=== PATIENT | female | born 1975 | race Caucasian/White ===

== ENCOUNTER → 2016-08-22 | Outpatient (CLI) | payer MEDICAID | LOC: CIMAGING 11:27 | PROVIDERS: ATTEND Family Medicine | DX: M79.671 Pain in right foot (principal) | CPT/HCPCS: 73620-PO ==

== ENCOUNTER → 2016-12-06 | Outpatient (CLI) | payer MEDICAID | LOC: CIMAGING 09:41 | PROVIDERS: ATTEND Family Medicine | DX: S22.20XA Unspecified fracture of sternum, initial encounter for closed fracture (principal); Y93.9 Activity, unspecified | CPT/HCPCS: 71120-PO ==

== ENCOUNTER 2017-10-15 00:55 | Emergency (ER) | payer MEDICAID ==
--- NOTE | 2017-10-15 01:40 | EDPHY ---
H & P Time Seen by Provider: 10/15/17 01:09 HPI/ROS: CC: red, painful, lump on back HPI: This 42-year-old female presents to the emergency department with her for a red and painful lump on her back. They are homeless and sleeping in a tent. She has had a fever for the last couple of days but they did not know how high or why. They only noticed the lump on her back this evening and came straight to the emergency room. They think she might have been bitten by a spider. No other known trauma. They have not noticed any drainage from the wound. REVIEW OF SYSTEMS: Constitutional: No chills. Eyes: No discharge. ENT: No sore throat. Respiratory: No cough, no shortness of breath. Cardiac: No chest pain, no palpitations. Gastrointestinal: No abdominal pain, no vomiting. Genitourinary: No dysuria Musculoskeletal: No extremity pain. Skin: See HPI Neurological: No headache. Source: Patient, Family () Exam Limitations: No limitations - Medical/Surgical History PMH: Past medical history includes degenerative joint disease, scoliosis, asthma, arthritis Past surgical history includes cholecystectomy, appendectomy, ORIF right foot, bilateral knee surgeries, x2 Allergies to sumatriptan Medications include oxycodone, Soma, gabapentin, Seroquel, duloxetine, ProAir Social history significant for being homeless, , two teenage children. 1.5 pack per day of cigarettes, no ETOH. +meth use. Last menstrual period 1.5 weeks ago Primary care provider is Dr. Coretta Cohen Asthma: No Hx Chronic Respiratory Disease: No Hx Diabetes: No Hx Cardiac Disease: No Hx Renal Disease: No Hx Cirrhosis: No Hx Alcoholism: No Hx HIV/AIDS: No Hx Splenectomy or Spleen Trauma: No Other PMH: chronic low back pain, right ankle surgery, knee surg, csectionx2, appendectomy, gall bladder removal, finger surgery, foot surgery. osteoporosis - Social History Smoking Status: Current every day smoker - Physical Exam Exam: General Appearance: Alert, moderate distress. Very anxious. Admits to using meth this evening. Appears older than stated age. Eyes: Pupils equal and round no pallor or injection. ENT, Mouth: Mucous membranes are moist. Respiratory: There are no retractions, lungs are clear to auscultation. Cardiovascular: Tachycardia, no murmurs, gallops or rubs. Gastrointestinal: Abdomen is soft and nontender, no masses, bowel sounds normal. Neurological: Awake and alert, sensory and motor exams grossly normal. Skin: Warm and dry. 5 cm x 4 cm area of erythema and induration upper back between scapulas. +fluctuance. No drainage. Musculoskeletal: Neck is supple nontender. Extremities are symmetrical, full range of motion. Psychiatric: Patient is oriented X 3. DIFFERENTIAL DIAGNOSIS: After history and physical exam differential diagnosis was considered for but not limited to: cellulitis, insect bite or sting, Constitutional: Initial Vital Signs Heart Rate 120 H 10/15/17 01:05 Respiratory Rate 18 10/15/17 01:05 Blood Pressure 136/98 H 10/15/17 01:05 O2 Sat (%) 96 10/15/17 01:05 O2 Delivery Mode Room Air O2 (L/minute) 36.8 Allergies/Adverse Reactions: sumatriptan Allergy (Mild, Verified 10/15/17 01:09) Other-Enter Comments Home Medications: Medication Instructions Recorded Oxycodon-Acetaminophen 7.5-500 01/26/14 Proair Hfa Icu (RX) 01/26/14 Clindamycin HCl [Cleocin HCl] 300 mg PO QID 10 Days #40 capsule 10/15/17 DULoxetine 10/15/17 Fioricet (*) 10/15/17 Gabapentin 10/15/17 Seroquel 10/15/17 Soma 10/15/17 Medical Decision Making Procedures: Procedure: Incision and drainage of abscess upper back The area was prepped and draped in the usual sterile fashion. The skin was cleansed with ChloraPrep. Local anesthesia was obtained with 6 cc of 0.5% bupivacaine with epinephrine. A 5 mm incision was made with a 11. Blade. Copious amounts of purulent fluid was expressed. A culture was taken. The wound was probed for loculations and irrigated with copious amounts of saline. Quarter-inch iodoform packing was placed into the wound. The area of erythema was outlined with a skin marker and a sterile dressing applied. The patient tolerated the procedure well. ED Course/Re-evaluation: The patient was seen and examined. Vital signs reviewed. She was afebrile but she was tachycardic. She admits to doing meth this evening. On exam she had a 5 x 4 cm area of erythema and induration on her upper, mid back. There was also fluctuance. Therefore an I&D was performed (see procedure note). Wound cultures were sent. She was given 900 mg of clindamycin IV piggyback. She will be sent home on clindamycin 300 mg 4 times a day. She should return in 2 days to have the packing either replaced were removed. She should recheck sooner if any worsening of symptoms as discussed. She should also follow up with her primary care provider early next week. - Data Points Medications Given: Discontinued Medications Clindamycin Phosphate/Dextrose (Cleocin 900 Mg (Premix)) 50 mls @ 100 mls/hr IV EDNOW ONE PRN Reason: Protocol Stop: 10/15/17 02:47 Last Admin: 10/15/17 02:22 Dose: 50 mls Departure - Departure Disposition: Home, Routine, Self-Care Clinical Impression: Cellulitis Qualifiers: Site of cellulitis: trunk Site of cellulitis of trunk: back Qualified Code(s): L03.312 - Cellulitis of back [any part except buttock] Condition: Good Instructions: Clindamycin (By mouth), Cellulitis (ED) Additional Instructions: Recheck IMMEDIATELY if continued fever, increased pain, or worsening swelling or redness. Otherwise, continue antibiotics as prescribed, recheck in TWO DAYS () for packing removal and possible replacement. Follow up with your primary care provider next Saturday. You were given Clindamycin 900mg IVPB this evening and prescribed oral Clindamycin 300mg four times a day. When you are here for your recheck, ask about your wound culture results. Referrals: Coretta Sapp MD [Medical Doctor] - 5-7 days, call for appt. Prescriptions: Clindamycin HCl [Cleocin HCl] 300 mg PO QID 10 Days #40 capsule
[2017-10-15] MEDS ORDERED: CLINDAMYCIN 900 MG/DEXTROSE 50 ML IV ONE (02:18)
[2017-10-15] MEDS ORDERED: CLINDAMYCIN 150MG PREPACK#6 BTL TAKEHOME ONE (02:58)
[2017-10-15 03:03] VITALS: BP 136/89
== END 2017-10-15 03:17 | disposition home or self-care (01) ==
LOC: CED 00:55
PROC: 0H96XZZ Drainage of Back Skin, External Approach (ICD-10-PCS; principal; 2017-10-15)
DX: L03.312 Cellulitis of back [any part except buttock and flank] (principal); J45.909 Unspecified asthma, uncomplicated; F17.200 Nicotine dependence, unspecified, uncomplicated
CPT/HCPCS: 96365

== ENCOUNTER 2017-10-17 19:08 | Emergency (ER) | payer MEDICAID ==
[2017-10-17] MEDS ORDERED: LET GEL TOPICAL 1 EA SYR TP ONE ×2 (19:51→20:00)
[2017-10-17] MEDS ORDERED: ACETAMINOPHEN 500 MG TAB PO ONE (20:38)
[2017-10-17] MEDS ORDERED: IBUPROFEN 600 MG TAB PO ONE (20:39)
[2017-10-17] MEDS ORDERED: IOPAMIDOL (ISOVUE-300) 100 ML BTL ONE (20:55)
[2017-10-17] MEDS ORDERED: VANCOMYCIN HCL/NORMAL SALINE 250 ML IV ONE (22:01)
--- NOTE | 2017-10-17 22:36 | EDPHY ---
H & P Stated Complaint: wound recheck Time Seen by Provider: 10/17/17 19:11 HPI/ROS: 42 yo F presents for recheck of her "spider bite", "back abscess" drained on October 15. Review of systems As per HPI General no fever no chills no weakness HEENT no eye pain no eye discharge. No eye redness, no sore throat Respiratory no cough, no shortness of breath Cardiac no chest pain, no peripheral edema GI no abdominal pain, no diarrhea, no constipation, no nausea, no vomiting no flank pain, no hematuria, no dysuria Musculoskeletal no myalgias, no joint pain Heme no easy bruising, no easy bleeding Endo no polyuria, no polydipsia Skin positive rashes, no pruritus Neuro no syncope, no dizziness, no headaches Psych is no suicidal ideation, no homicidal ideation Source: Patient, Family Exam Limitations: No limitations - Personal History LMP (Females 10-55): 8-14 Days Ago Current Tetanus/Diphtheria Vaccine: Yes Current Tetanus Diphtheria and Acellular Pertussis (TDAP): Yes - Medical/Surgical History Hx Asthma: No Hx Chronic Respiratory Disease: No Hx Diabetes: No Hx Cardiac Disease: No Hx Renal Disease: No Hx Cirrhosis: No Hx Alcoholism: No Hx HIV/AIDS: No Hx Splenectomy or Spleen Trauma: No Other PMH: chronic low back pain, right ankle surgery, knee surg, csectionx2, appendectomy, gall bladder removal, finger surgery, foot surgery. osteoporosis - Family History Significant Family History: No pertinent family hx - Social History Smoking Status: Current every day smoker Alcohol Use: Occasionally Drug Use: Other - Physical Exam Exam: 42 yo F alert and oriented in no acute distress nontoxic appearance afebrile Atraumatic normocephalic Neck no JVD Lungs clear to auscultation, no respiratory distress Heart regular rate and rhythm Extremities no cyanosis clubbing edema Back Mid back resolving abscess-incision at left lateral aspect of area of erythema with ongoing drainage, no visible packing, ,draining abscess with erythema, and induration, diffusely tender, no crepitus, ? fluctuance in right lateral aspect No gross fluctuance Constitutional: Initial Vital Signs Temperature (C) 36.7 C 10/17/17 19:14 Heart Rate 100 10/17/17 19:14 Respiratory Rate 16 10/17/17 19:14 Blood Pressure 137/90 H 10/17/17 19:14 O2 Sat (%) 98 10/17/17 19:14 O2 Delivery Mode Room Air Allergies/Adverse Reactions: sumatriptan Allergy (Mild, Verified 10/15/17 01:09) Other-Enter Comments Home Medications: Medication Instructions Recorded Oxycodon-Acetaminophen 7.5-500 01/26/14 Proair Hfa Icu (RX) 01/26/14 Clindamycin HCl [Cleocin HCl] 300 mg PO QID 10 Days #40 capsule 10/15/17 DULoxetine 10/15/17 Fioricet (*) 10/15/17 Gabapentin 10/15/17 Seroquel 10/15/17 Soma 10/15/17 Sulfamethox/Tmp 800/160 mg 1 tab PO BID #14 tab 10/17/17 [Bactrim Ds] Medical Decision Making Procedures: Abscess-procedure note The patient gave verbal consent for drainage of a subcutaneous abscess. Risk of bleeding and pain were explained to the patient. The most fluctuant aspect of the abscess was identified. Local anesthetic lidocaine 1% was used. A scalpel was used to incise the abscess. There was a small amount of serosanguinos drainage Abscess was irrigated and packed. The patient tolerated procedure well. ED Course/Re-evaluation: Pt seen and re-evaluated for mid back abscess. It was initially drained [address] Gregorio with large amount of drainage , and pt was given clindamycin IVPB and discharged on Clindamycin. She returns for wound check but continues to complain of pain and drainage. Her partner who has been able to see the abscess on her back says it appears markedly better to him. I decided to I and D the questionably fluctuant area on the right, with no results, just a small amount of serosanguinous drainage, less than 1 ml. labs WBC wnl lactate wnl ct back with contrast no evidence of abscess, no fluid collection, pos induration no deep involvement pt given one dose Vancomycin IVPB Imp/Plan Improving back abscess, no further fluid collection noted on CT scan Will add Bactrim to abx for improved MRSA coverage Advise pt to get recheck with pcp in 2-3 days Differential Diagnosis: Differential diagnosis considered but not limited to: Abscess with cellulitis, deep abscess, cellulitis, necrotizing fasciitis - Data Points Medications Given: Discontinued Medications Acetaminophen (Tylenol) 1,000 mg PO EDNOW ONE Stop: 10/17/17 20:39 Last Admin: 10/17/17 20:47 Dose: 1,000 mg Vancomycin/Sodium Chloride (Vancomycin 1 Gm (Premix)) 250 mls @ 250 mls/hr IV EDNOW ONE PRN Reason: Protocol Stop: 10/17/17 23:00 Last Admin: 10/17/17 22:06 Dose: 250 mls Ibuprofen (Motrin) 600 mg PO EDNOW ONE Stop: 10/17/17 20:40 Last Admin: 10/17/17 20:47 Dose: 600 mg Potassium Chloride (Klor-Con) 40 meq PO ONCE ONE Stop: 10/17/17 22:51 Last Admin: 10/17/17 23:10 Dose: 40 meq Tetracaine/Epinephrine/Lidocaine (Let Gel Topical) 1 ea TP EDNOW ONE Stop: 10/17/17 20:01 Last Admin: 10/17/17 20:02 Dose: 1 ea Trimethoprim/Sulfamethoxazole (Bactrim Ds Prepack#2) 1 btl TAKEHOME EDNOW ONE Stop: 10/17/17 22:47 Last Admin: 10/17/17 23:10 Dose: 1 btl Point of Care Test Results: CBC CBC Collection Date 10/17/17 CBC Collection Time 21:00 WBC 6.3 RBC 4.19 HGB 12.3 HCT 37.7 PLT 252 Neut # 3.7 Neut 58.1 LYMPH # 1.8 LYMPH 29.3 Other WBC # 0.8 Other WBC 12.6 MCV 90 Chemistry 10/17/17 21:08 POC Sodium 138 mEq/L mEq/L (135-145) POC Potassium 3.1 mEq/L L mEq/L (3.3-5.0) POC Chloride 102.0 mEq/L mEq/L (97-110) POC Total CO2 26 mEq/L mEq/L (22-31) POC BUN 18 mg/dL mg/dL (7-23) POC Creatinine 0.9 mg/dL mg/dL (0.6-1.0) POC Glucose 124 mg/dL H mg/dL (70-100) POC Calcium 8.8 mg/dL mg/dL (8.5-10.4) Blood Gas/Lactic Acid-Venous 10/17/17 21:06 POC Lactic Acid Jon 1.1 mmol/L mmol/L (0.7-2.1) Departure - Departure Disposition: Home, Routine, Self-Care Clinical Impression: Cutaneous abscess of back [any part, except buttock], Cellulitis Condition: Good Instructions: Sulfamethoxazole/Trimethoprim (By mouth), Cellulitis (ED) Additional Instructions: See Dr Sapp in the next few days for a recheck. Referrals: Coretta Sapp MD [Primary Care Provider] - As per Instructions Prescriptions: Sulfamethox/Tmp 800/160 mg [Bactrim Ds] 1 tab PO BID #14 tab
[2017-10-17] MEDS ORDERED: SULFAMET/TMP DS PREPACK#2 BTL TAKEHOME ONE (22:46)
[2017-10-17] MEDS ORDERED: POTASSIUM CL 20 MEQ TAB PO ONE (22:50)
[2017-10-17 23:25] VITALS: BP 148/98
== END 2017-10-17 23:25 | disposition home or self-care (01) ==
LOC: CED 19:08
PROC: 0H96XZZ Drainage of Back Skin, External Approach (ICD-10-PCS; principal; 2017-10-17)
DX: L02.212 Cutaneous abscess of back [any part, except buttock and flank] (principal); L03.312 Cellulitis of back [any part except buttock and flank]; F17.200 Nicotine dependence, unspecified, uncomplicated
CPT/HCPCS: 80048-PO; 83605-PO; J3370; Q9967